=== PATIENT | male | born 1975 | race Caucasian/White ===

== ENCOUNTER 2017-01-14 19:06 | Emergency (ER) | payer OTHER ==
[2017-01-14 19:14] VITALS: BP 139/37; PULSE 88; TEMP 98.2; BMI 32.5
--- NOTE | 2017-01-14 20:20 | PDOC ---
History of Present Illness - General History Source: Patient Exam Limitations: No Limitations - History of Present Illness Initial Comments: 01/14/17 20:31 The patient is a 41 year old male with no past medical history who presents to the ED with swelling of bilateral knees x8 months. Patient reports he developed increased swelling to both knees 8 months ago with occasional episodes of pain, which he describes as like a pressure-like sensation and 8/10, in severity. States his pain is localized at the medial and lateral aspects of both knees. Denies any loss of sensation, paresthesias, or radiation of pain. Denies any trauma to the area. Denies diaphoresis, lightheadedness, SOB, chest pain, jaw pain, shoulder pain, arm pain, nausea, or vomiting. Patient reports he has not seen a doctor in over 10 years. Unknown medical history. The patient denies fever, chills, cough, abdominal pain, and diarrhea. Allergies: NKDA Social History: Current smoker (half ppd). No alcohol or drug use reported. Past Surgical History: None reported Does not have a PMD <Emilee aClderon - Last Filed: 01/14/17 20:31> - General History Source: Patient <Ruddy Mcwilliams - Last Filed: 01/14/17 23:47> - General Chief Complaint: Edema Stated Complaint: SWOLLEN LEGS Time Seen by Provider: 01/14/17 19:40 Past History <Emilee Calderon - Last Filed: 01/14/17 20:31> - Past Medical History Other medical history: PT DENIES MEDICAL HX - Psycho/Social/Smoking Cessation Hx Suicidal Ideation: No Smoking History: Current every day smoker Number of Cigarettes Smoked Daily: 10 Information on smoking cessation initiated: No Hx Alcohol Use: No Drug/Substance Use Hx: No <Ruddy Mcwilliams - Last Filed: 01/14/17 23:47> - Past Medical History Allergies/Adverse Reactions: Allergies Allergy/AdvReac Type Severity Reaction Status Date / Time No Known Allergies Allergy Verified 01/14/17 19:15 Home Medications: Ambulatory Orders Ibuprofen 800 mg PO TID #30 tablet 01/14/17 Review of Systems - Review of Systems Able to Perform ROS?: Yes Comments:: 01/14/17 20:31 CONSTITUTIONAL: Absent: fever, no chills, no fatigue EYES: Absent: visual changes ENT: Absent: ear pain, no sore throat CARDIOVASCULAR: Absent: chest pain, no palpitations RESPIRATORY: Absent: cough, no SOB GI: Absent: abdominal pain, no nausea, no vomiting, no constipation, no diarrhea GENITOURINARY: Absent: dysuria, no frequency, no hematuria MUSCULOSKELETAL: +bilateral knee swelling and pain Absent: back pain, no myalgia SKIN: Absent: rash NEURO: Absent: headache <JuanitaandreaAnthonyEmilee - Last Filed: 01/14/17 20:31> *Physical Exam - Vital Signs Last Vital Signs Temp Pulse Resp BP Pulse Ox 98.2 F 88 18 139/37 91 L 01/14/17 19:09 01/14/17 19:09 01/14/17 19:09 01/14/17 19:09 01/14/17 19:09 - Physical Exam Comments: 01/14/17 20:32 GENERAL: Well-appearing, well-nourished. No apparent distress. HEENT: Normocephalic, atraumatic. PERRL, EOM intact. CARDIOVASCULAR: Normal S1, S2. Regular rate and rhythm. PULMONARY: Clear to auscultation bilaterally. ABDOMEN: Soft, non-distended, non-tender. EXTREMITIES: Clubbing of most of the digits of both hands. Normal ROM in all four extremities. Bilateral mild swelling to the superior aspect of both patella regions. Nonerythmea. Non-tenderness. No gross deformities. SKIN: Warm, dry. No rash NEUROLOGICAL: No focal neurological deficits. <JuanitaandreaKenEmilee - Last Filed: 01/14/17 20:31> - Vital Signs Last Vital Signs Temp Pulse Resp BP Pulse Ox 98.2 F 88 18 139/37 91 L 01/14/17 19:09 01/14/17 19:09 01/14/17 19:09 01/14/17 19:09 01/14/17 19:09 <Ruddy Mcwilliams - Last Filed: 01/14/17 23:47> ED Treatment Course - LABORATORY CBC & Chemistry Diagram: 01/14/17 20:50 01/14/17 20:50 <Ruddy Mcwilliams - Last Filed: 01/14/17 23:47> Medical Decision Making - Medical Decision Making 01/14/17 23:46 Dr. Mcwilliams: The scribe's documentation has been prepared under my direction and personally reviewed by me in its entirery. I confirm that the note above accurately reflects all work, treatment, procedures, and medical decision making performed by me. <Ruddy Mcwilliams - Last Filed: 01/14/17 23:47> *DC/Admit/Observation/Transfer - Attestations Scribe Attestion: 01/14/17 20:32 Documentation prepared by Emilee Calderon, acting as medical lab director for Ruddy Mcwilliams MD <Emilee Calderon - Last Filed: 01/14/17 20:31> - Discharge Dispostion Admit: No <Ruddy Mcwilliams - Last Filed: 01/14/17 23:47> Diagnosis at time of Disposition: Bilateral knee swelling - Discharge Dispostion Disposition: HOME Condition at time of disposition: Stable - Referrals Referrals: Hanane Simon MD [Staff Physician] - Mustapha Malagon MD [Staff Physician] - - Patient Instructions Printed Discharge Instructions: DI for Knee Pain
[2017-01-14 21:02] LABS: BASOPHIL 1.1 % (0-2.0); EOSINOPHIL 1.5 % (0-4.5); MCH 28.6 pg (25.7-33.7); MCHC 33.7 g/dl (32.0-35.9); MEAN PLT VOLUME 7.5 fl (7.5-11.1); NEUTROPHILS 60.2 % (42.8-82.8); PLATELET COUNT 304 K/MM3 (134-434); RDW 13.5 % (11.9-15.9); WHITE BLOOD COUNT 16.5 K/mm3 (4.0-10.0)
[2017-01-14 21:19] LABS: INR 1.02 (0.82-1.09); PROTHROMBIN TIME (PATIENT) 11.2 SEC (9.98-11.88)
[2017-01-14 21:29] LABS: ALBUMIN 3.9 g/dl (3.4-5.0); ANION GAP 11 (8-16); BILIRUBIN,TOTAL 0.3 mg/dL (0.2-1.0); CALCIUM 8.8 mg/dL (8.5-10.1); CO2 26 mmol/L (21-32); COCKROFT - GAULT 183.32; CREATININE 0.8 mg/dL (0.7-1.3); GLUCOSE,RANDOM 115 mg/dL (74-106); MAGNESIUM 2.3 mg/dL (1.8-2.4); SGOT/AST 27 U/L (15-37); SGPT/ALT 30 U/L (12-78); TOT PROT 7.5 g/dl (6.4-8.2)
[2017-01-14 21:31] LABS: ALK PHOS 126 U/L (45-117)
[2017-01-14 21:59] LABS: URINE APPEARANCE CLEAR; URINE BILIRUBIN NEGATIVE (NEGATIVE); URINE BLOOD NEGATIVE (NEGATIVE); URINE COLOR LTYELLOW; URINE GLUCOSE (UA) NEGATIVE (NEGATIVE); URINE KETONE NEGATIVE (NEGATIVE); URINE NITRITE NEGATIVE (NEGATIVE); URINE PROTEIN NEGATIVE (NEGATIVE); URINE UROBILINOGEN NEGATIVE E.U./dl (0.2-1.0)
[2017-01-14 22:02] LABS: URINE LEUK ESTERASE 1+ (NEGATIVE)
[2017-01-14 22:05] LABS: URINE MUCUS RARE; URINE RBC <1 /hpf (0-3); URINE WBC 2 /hpf (3-5)
[2017-01-14] MEDS ORDERED: IBUPROFEN 400 MG TABLET (FP) PO ONE ×2 (23:45→23:59)
== END 2017-01-15 00:18 | disposition home or self-care (01) ==
LOC: JER 19:06
DX: R60.0 Localized edema (principal)
CPT/HCPCS: 36415; 71020-TC; 80053; 81003; 81015; 83735; 83880; 85025; 85610; 93970-TC; 99282-25

== ENCOUNTER 2018-05-17 18:59 | Emergency (ER) | payer OTHER ==
--- NOTE | 2018-05-17 19:07 | PDOC ---
Rapid Medical Evaluation Time Seen by Provider: 05/17/18 19:04 Medical Evaluation: Allergies Allergy/AdvReac Type Severity Reaction Status Date / Time No Known Allergies Allergy Verified 01/14/17 19:15 05/17/18 19:04 Healthy 43-year-old male smoker returned from [facility] to [place] this morning who presents complaining of bladder pain, dysuria, and hematuria since Thursday. No fevers/chill. Some mild left flank pain. V/s notable for BP 157/100. Alert, oriented, no distress. No focal abdominal tenderness, no CVA tenderness. Labs including CBC, CMP, UA/culture To [facility] ED for further evaluation Discharge Disposition - Diagnosis Hematuria - Referrals - Patient Instructions - Post Discharge Activity
[2018-05-17 19:09] VITALS: BP 141/98; PULSE 85; TEMP 99; BMI 33.2
--- NOTE | 2018-05-17 19:28 | PDOC ---
History of Present Illness - General Chief Complaint: Hematuria Stated Complaint: BLEEDING Time Seen by Provider: 05/17/18 19:04 History Source: Patient Exam Limitations: No Limitations - History of Present Illness Travel History: Yes (Honeymoon in [place]) Initial Comments: Patient is a 43-year-old male who is a 1 pack per day smoker who states that over the past 24 hours he has had hematuria. Patient denies pain. He denies dysuria. He denies flank pain. He denies recent unexplained weight loss or nonblanching rash. Patient denies personal or family history of bladder cancer. Patient denies any aggravating or relieving factors. 05/17/18 19:25 Past History - Travel Traveled outside of the country in the last 30 days: Yes If so, where?: [place] Close contact w/someone who was outside of country & ill: No - Past Medical History Allergies/Adverse Reactions: Allergies Allergy/AdvReac Type Severity Reaction Status Date / Time No Known Allergies Allergy Verified 01/14/17 19:15 Home Medications: Ambulatory Orders Ciprofloxacin HCl [Cipro] 500 mg PO BID #14 tablet 05/17/18 - Suicide/Smoking/Psychosocial Hx Smoking History: Current every day smoker Have you smoked in the past 12 months: Yes Number of Cigarettes Smoked Daily: 30 Information on smoking cessation initiated: Yes Hx Alcohol Use: No Drug/Substance Use Hx: No Review of Systems - Review of Systems Able to Perform ROS?: Yes Constitutional: No: Chills, Fever ABD/GI: No: Nausea, Rectal Bleeding, Abdominal cramping All Other Systems: Reviewed and Negative *Physical Exam - Vital Signs Last Vital Signs Temp Pulse Resp BP Pulse Ox 99 F 85 20 141/98 100 05/17/18 19:07 05/17/18 19:07 05/17/18 19:07 05/17/18 19:07 05/17/18 19:07 - Physical Exam Comments: Constitutional: VS stated, pt appears in no apparent distress; sitting in chair. Skin: Warm and dry. Intact, no lesions or excoriations. Head: Normocephalic; atraumatic Eyes:conjunctiva pink without injection or discharge. Throat: Oropharynx with pink and moist mucosa. Neck: Supple, non-tender, with full ROM, Lungs: Bilateral breath sounds clear upon auscultation. No adventitious breath sounds. Heart: Regular rate and rhythm, S1/S2 auscultated. No murmurs, rubs, or gallops. No visible pulsations, heaves, or lifts on precordium. Abdomen: Soft and non-tender. Bowel sounds present in all 4 quadrants, no hepatosplenomegaly, No bruits auscultated. No guarding or rebound. No masses or visible pulsations present. No suprapubic tenderness. No CVAT. No bruits. Musculoskeletal: Moves all extremities without difficulty. Neurologic: Awake, alert. Conversation fluent. Psychiatric: Appropriate affect. 05/17/18 19:26 *DC/Admit/Observation/Transfer Diagnosis at time of Disposition: Urinary tract infection Diagnosis at time of Disposition: (Ruled Out): Hematuria - Discharge Dispostion Disposition: HOME Condition at time of disposition: Stable Decision to Admit order: No - Prescriptions Prescriptions: Ciprofloxacin HCl [Cipro] 500 mg PO BID #14 tablet - Referrals Referrals: Braydon Musa MD., [Staff Physician] - - Patient Instructions Printed Discharge Instructions: DI for Urinary Tract Infection (UTI) Additional Instructions: Take antibiotic as directed. Follow-up with urology for worsening symptoms. - Post Discharge Activity
[2018-05-17 19:35] LABS: URINE APPEARANCE SLCLOUDY; URINE BILIRUBIN NEGATIVE (<2.0 mg/dL); URINE COLOR YELLOW; URINE GLUCOSE (UA) NEGATIVE (NEGATIVE); URINE KETONE NEGATIVE (NEGATIVE); URINE NITRITE NEGATIVE (NEGATIVE); URINE PROTEIN NEGATIVE (NEGATIVE); URINE UROBILINOGEN 4.0 E.U/dl mg/dL (0.2-1.0)
[2018-05-17 19:43] LABS: URINE LEUK ESTERASE 3+ (NEGATIVE)
[2018-05-17 19:44] LABS: EPI CELLS RARE /HPF (FEW); URINE MUCUS RARE
== END 2018-05-17 19:50 | disposition home or self-care (01) ==
LOC: JERFT 18:59
DX: N39.0 Urinary tract infection, site not specified (principal); R31.9 Hematuria, unspecified; F17.210 Nicotine dependence, cigarettes, uncomplicated
CPT/HCPCS: 81003; 81015; 87086; 99281-25

== ENCOUNTER 2019-02-08 17:18 | Emergency (ER) | payer OTHER ==
[2019-02-08 17:24] VITALS: BMI 32.5
--- NOTE | 2019-02-08 17:24 | PDOC ---
Rapid Medical Evaluation Chief Complaint: Hemoptysis Time Seen by Provider: 02/08/19 17:23 Medical Evaluation: Allergies Allergy/AdvReac Type Severity Reaction Status Date / Time No Known Allergies Allergy Verified 01/14/17 19:15 02/08/19 17:23 I have performed a brief in-person evaluation of this patient. The patient presents with a chief complaint of: hemoptysis Pertinent physical exam findings:stable and in NAD, non-focal I have ordered the following:labs, chest xray The patient will proceed to the ED for further evaluation.
[2019-02-08 18:37] LABS: BASO % 0.2 % (0-2.0); EOS % 0.7 % (0-4.5); HEMATOCRIT 50.3 % (35.4-49); HEMOGLOBIN 16.9 GM/dL (11.7-16.9); LYMPH % 29.3 % (8-40); MCH 28.9 pg (25.7-33.7); MCHC 33.6 g/dl (32.0-35.9); MEAN CELL VOLUME 86.2 fl (80-96); MEAN PLT VOLUME 8.1 fl (7.5-11.1); MONO % 6.3 % (3.8-10.2); NEUT % 63.5 % (42.8-82.8); PLATELET COUNT 334 K/MM3 (134-434); RBC 5.83 M/mm3 (4.00-5.60); RDW 13.7 % (11.9-15.9); WHITE BLOOD COUNT 18.4 K/mm3 (4.0-10.0)
[2019-02-08 18:55] LABS: INR 0.97 (0.83-1.09); PROTHROMBIN TIME (PATIENT) 11.4 SEC (9.7-13.0)
[2019-02-08 19:05] LABS: ALBUMIN 4.3 g/dl (3.4-5.0); BILIRUBIN,TOTAL 0.4 mg/dL (0.2-1); CALCIUM 9.4 mg/dL (8.5-10.1); CREATININE 0.7 mg/dL (0.55-1.3); POTASSIUM 4.5 mmol/L (3.5-5.1); TOT PROT 8.1 g/dl (6.4-8.2)
--- NOTE | 2019-02-08 20:05 | PDOC ---
History of Present Illness - General Chief Complaint: Hemoptysis Stated Complaint: HEMOPTYSIS Time Seen by Provider: 02/08/19 17:23 - History of Present Illness Initial Comments: 43 year old male without PCP care and 20 pack year history of smoking presenting with multiple episodes of hemoptysis earlier today. States that he occasional has been spitting up clots today. Denies fevers, chills, nausea, vomiting, diarrhea, chest pain, lightheadedness or other symptoms. 02/08/19 22:03 Past History - Past Medical History Allergies/Adverse Reactions: Allergies Allergy/AdvReac Type Severity Reaction Status Date / Time No Known Allergies Allergy Verified 02/08/19 17:24 Home Medications: Ambulatory Orders Ciprofloxacin HCl [Cipro] 500 mg PO BID #14 tablet 05/17/18 COPD: No - Suicide/Smoking/Psychosocial Hx Smoking History: Current every day smoker Have you smoked in the past 12 months: Yes Number of Cigarettes Smoked Daily: 20 Information on smoking cessation initiated: No Hx Alcohol Use: No Drug/Substance Use Hx: No Review of Systems - Review of Systems Constitutional: No: Chills, Diaphoresis, Fever HEENTM: No: Eye Pain, Blurred Vision, Tearing Respiratory: Yes: Hemoptysis. No: Orthopnea, Shortness of Breath, Productive cough Cardiac (ROS): No: Edema, Irregular Heart Rate ABD/GI: No: Diarrhea, Nausea, Poor Appetite, Vomiting : No: Burning, Dysuria, Discharge Musculoskeletal: No: Back Pain, Gout, Joint Pain Integumentary: No: Bruising, Erythema, Flushing, Lesions Neurological: No: Headache, Numbness, Paresthesia, Tingling Psychiatric: No: Anxiety, Depression Hematologic/Lymphatic: No: Anemia, Blood Clots *Physical Exam - Vital Signs Last Vital Signs Temp Pulse Resp BP Pulse Ox 98.1 F 89 18 128/90 93 L 02/08/19 17:21 02/08/19 17:21 02/08/19 17:21 02/08/19 17:21 02/08/19 17:21 - Physical Exam General Appearance: Yes: Nourished, Appropriately Dressed. No: Apparent Distress HEENT: positive: EOMI, MAU, Pharyngeal Erythema, Tonsillar Erythema. negative : Normal ENT Inspection Neck: positive: Trachea midline, Normal Thyroid, Supple. negative: Tender, Rigid Respiratory/Chest: positive: Lungs Clear, Normal Breath Sounds. negative: Chest Tender, Respiratory Distress, Accessory Muscle Use Cardiovascular: positive: Regular Rhythm, Regular Rate Gastrointestinal/Abdominal: positive: Normal Bowel Sounds, Flat, Soft. negative : Tender Lymphatic: negative: Adenopathy, Tenderness Musculoskeletal: positive: Normal Inspection. negative: Decreased Range of Motion Extremity: positive: Normal Capillary Refill, Normal Inspection, Normal Range of Motion Integumentary: positive: Normal Color, Dry, Warm Neurologic: positive: Fully Oriented, Alert, Normal Mood/Affect, Normal Response , Motor Strength 01/23 ED Treatment Course - LABORATORY CBC & Chemistry Diagram: 02/08/19 18:25 02/08/19 18:25 - ADDITIONAL ORDERS Additional order review: Laboratory Results 02/08/19 02/08/19 18:25 18:25 PT with INR 11.40 INR 0.97 PTT (Actin FS) 40.0 H Sodium 135 L Potassium 4.5 Chloride 103 Carbon Dioxide 26 Anion Gap 6 L BUN 15 Creatinine 0.7 Est GFR (CKD-EPI)AfAm 132.09 Est GFR (CKD-EPI)NonAf 113.97 Random Glucose 130 H Calcium 9.4 Total Bilirubin 0.4 AST 35 ALT 33 Alkaline Phosphatase 144 H Total Protein 8.1 Albumin 4.3 02/08/19 18:25 RBC 5.83 H MCV 86.2 MCHC 33.6 RDW 13.7 MPV 8.1 Neutrophils % 63.5 Lymphocytes % 29.3 Monocytes % 6.3 Eosinophils % 0.7 Basophils % 0.2 Medical Decision Making - Medical Decision Making 43 year old male with PMH of 20 PY smoking presenting with occasional hemoptysis over the course of the day. Labs demonstrating leukocystosis and borderline erythrocytosis. Unclear cause of his leukocytosis but patient overall appears non infectious. CXR not demonstrating acute pathology and CT demonstrating increased hilar lymphadneopathy and ground glass opacities with overall picture concerning for sarcoidosis. Patient agrees to follow up with his 's PCP and will find a patternmaker plaster. We gave him our clinci and Dr. Martinez as back up. 02/08/19 22:06 *DC/Admit/Observation/Transfer Diagnosis at time of Disposition: Hemoptysis - Discharge Dispostion Disposition: HOME Condition at time of disposition: Improved Decision to Admit order: No - Referrals Referrals: Gerard Martinez MD [Staff Physician] - [facility] [Provider Group] - Patient Instructions Printed Discharge Instructions: DI for Hemoptysis Additional Instructions: Please follow up with your 's PCP as soon as possible to have your results followed up. Your CT is showing some findings that are concerning for sarcoidosis or another lung disease. We also have our primary care clinic and the patternmaker plaster (Dr. Martinez). Please reutrn ot the Ed if you start to bled more, have fevers, chills, trouble breathing, or other symptoms. - Post Discharge Activity
--- NOTE | 2019-02-08 21:51 | PDOC ---
Documentation entered by Deysi Bass SCRIBE, acting as scribe for Dara Busch MD. Dara Busch MD: This documentation has been prepared by the Shelia vicente Xhesika, SCRIBE, under my direction and personally reviewed by me in its entirety. I confirm that the documentation accurately reflects all work, treatment, procedures, and medical decision making performed by me. Attending Attestation - Resident Resident Name: Neisha Noeltobiastrice - ED Attending Attestation I have performed the following: I have examined & evaluated the patient, The case was reviewed & discussed with the resident, I agree w/resident's findings & plan, Exceptions are as noted - HPI HPI: 02/08/19 20:31 43 yo male has 3 episodes of hemoptysis today. He has no fevers and no shortness of breath. He has a history of tobacco use 02/08/19 20:47 The patient is a 43 year old female, with no significant PMH of who presents to the emergency department with hemoptysis. The patient states she had 3 episodes of hemoptysis today, however, the patient denies fever, chills, nausea, vomiting, diarrhea or constipation. The patient denies chest pain, shortness of breath or dizziness. The patient denies dysuria, frequency, urgency or hematuria. Allergy: NKDA Surgical History: None reported Social History: 1 pack per day smoker - Physicial Exam PE: 02/08/19 21:25 tall 43 yo male p/w coughing up blood today head ncat neck supple lungs cta b/l cvs [id number] abd nontender extremities no edema no cva tenderness skin warm and dry neuro axox3,ambulatory psych appropriate - Medical Decision Making 02/08/19 21:46 CT of the chest without contrast shows moderate mediastinal lymphadenopathy. There is bilateral hilar adenopathy also suggested Patchy areas of groundglass opacification throughout the lung sharma. The possibility of sacral doses should be considered Right middle lobe nodularity. No evidence of acute pathology with the chest. Clinical correlation and follow-up is recommended. Patient referred to cooker cleaner for further evaluation. Patient claros not require supplemental oxygen, he is not febrile and has no respiratory distress 02/08/19 21:49 imp hemoptysis diff diag: interstitial lung ds, sarcoidosis referral to cooker cleaner
[2019-02-08 22:09] VITALS: BP 126/85; PULSE 86; TEMP 97.9
== END 2019-02-08 22:24 | disposition home or self-care (01) ==
LOC: JER 17:18
DX: R04.2 Hemoptysis (principal); F17.210 Nicotine dependence, cigarettes, uncomplicated
CPT/HCPCS: 36415; 71046-TC-FY; 71250-TC; 80053; 85025; 85610; 85730; 99283-25